=== PATIENT | male | born 1985 | race African-American/Black ===

== ENCOUNTER 2024-05-26 20:55 | Emergency (ER) | payer SELFPAY ==
--- NOTE | 2024-05-26 22:38 | EDPHYS ---
Physician Documentation [facility] Name: Elvin Shepard Age: 38 yrs Sex: Male : 1985 Arrival Date: 05/26/2024 Time: 20:55 Bed 7 Private MD: ED Physician Jonathan Delgado HPI: 05/26 23:09 This 38 yrs old Black Male presents to ER via Ambulatory with complaints of Low Back rt Pain. 23:09 Patient presents to the ED with atraumatic low back pain. 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 Patient reports that the pain goes across his back, has been progressively worsening for the past 2 weeks. Denies other radiation, neurologic symptoms. Symptoms are aching in nature, not otherwise radiating, no other aggravating or alleviating factors.. Historical: - Allergies: 21:17 No Known Allergies; me1 - Home Meds: 21:17 BuSpar Oral [Active]; Xanax Oral [Active]; me1 - PMHx: 21:17 Panic attack; Anxiety; me1 - PSHx: 21:17 None; me1 - Immunization history:: Adult Immunizations up to date. - Infectious Disease History:: Denies. - Social history:: Smoking status: Patient reports the use of cigarette tobacco products, denies chronic smoking, but will smoke occasionally. - Family history:: not pertinent. ROS: 23:09 Constitutional: Negative for fever, chills, and weight loss, Cardiovascular: Negative rt for chest pain, palpitations, and edema, Respiratory: Negative for shortness of breath, cough, wheezing, and pleuritic chest pain, MS/Extremity: Negative for injury and deformity, Skin: Negative for injury, rash, and discoloration, Neuro: Negative for headache, weakness, numbness, tingling, and seizure, 23:09 Back: Positive for pain at rest, Negative for injury or acute deformity, Exam: 23:09 Constitutional: This is a well developed, well nourished patient who is awake, alert, rt and in no acute distress. Head/Face: Normocephalic, atraumatic. Chest/axilla: Normal chest wall appearance and motion. Nontender with no deformity. No lesions are appreciated. Cardiovascular: Regular rate and rhythm with a normal S1 and S2. No gallops, murmurs, or rubs. Normal PMI, no JVD. No pulse deficits. Respiratory: Lungs have equal breath sounds bilaterally, clear to auscultation and percussion. No rales, rhonchi or wheezes noted. No increased work of breathing, no retractions or nasal flaring. Skin: Warm, dry with normal turgor. Normal color with no rashes, no lesions, and no evidence of cellulitis. MS/ Extremity: Pulses equal, no cyanosis. Neurovascular intact. Full, normal range of motion. Neuro: Awake and alert, GCS 15, oriented to person, place, time, and situation. Cranial nerves II-XII grossly intact. Motor strength 5/5 in all extremities. Sensory grossly intact. Cerebellar exam normal. Normal gait. 23:09 Back: Mild tenderness at the bilateral lower lumbar paraspinal region, no step-offs, no CVAT, Vital Signs: 21:14 BP 122 / 94; Pulse 88; Resp 16; Temp 98; Pulse Ox 97% ; Weight 119.75 kg; Height 5 ft. me1 6 in. ; Pain 8/10; 21:14 Body Mass Index 42.61 (119.75 kg, 167.64 cm) me1 21:14 Pain Scale: Adult me1 MDM: 22:29 Medical Screening Exam initiated rt 23:09 Differential diagnosis: Low back pain, disc herniation, sciatica. Data reviewed: vital rt signs, nurses notes. Test considered but Not performed: Other Details No trauma, neurologic deficits, CT scan not indicated. Counseling: I had a detailed discussion with the patient and/or guardian regarding the historical points, exam findings, and any diagnostic results supporting the discharge/admit diagnosis, the need for outpatient follow up, to return to the emergency department if symptoms worsen or persist or if there are any questions or concerns that arise at home. Response to treatment: the patient's symptoms have mildly improved after treatment. Administered Medications: 22:49 Drug: Ketorolac IM 30 mg IM once Route: IM; Site: right deltoid; al5 22:49 Follow up: Response: No adverse reaction; Medication administered at discharge. al5 22:49 Drug: Cyclobenzaprine PO 10 mg PO once Route: PO; al5 22:49 Follow up: Response: No adverse reaction; Medication administered at discharge. al5 Disposition Summary: 05/26/24 22:37 Discharge Ordered Notes: Location: Home rt Problem: an ongoing problem rt Symptoms: are unchanged rt Condition: Stable rt Diagnosis - Low back pain rt Followup: rt - With: Private Physician - When: 2 - 3 days - Reason: Discharge Instructions: - Discharge Summary Sheet rt - Acute Back Pain, Adult rt Forms: - Work release form rt - Medication Reconciliation Form rt - Antibiotic Education rt - Prescription Opioid Use rt - Patient Portal Instructions rt - Leadership Thank You Letter rt Prescriptions: - Cyclobenzaprine 10 mg Oral Tablet - take 1 tablet ORAL route every 8 hours As needed; 30 tablet; Refills: 0, rt Product Selection Permitted - Medrol (Terrell) 4 mg Oral Tablets, Dose Pack - take 1 tablet ORAL route as directed - follow package instructions; 1 packet; rt Refills: 0, Product Selection Permitted Signatures: Jonathan Delgado MD MD rt Kaylyn Vásquez, RN RN me1 Vita Austin RN RN al5
--- NOTE | 2024-05-26 22:38 | ER ---
Nurse's Notes [facility] Name: Elvin Shepard Age: 38 yrs Sex: Male : 1985 Arrival Date: 05/26/2024 Time: 20:55 Bed 7 Private MD: Diagnosis: Low back pain Presentation: 05/26 21:14 Chief complaint: Patient states: lower back pain that started 2 weeks ago but has me1 gotten worse. Patient climb a lot ladders and do heavy lifting at work but does not know of a specific time that he injured it. Coronavirus screen: Vaccine status: Patient reports being unvaccinated. Ebola Screen: No symptoms or risks identified at this time. Initial Sepsis Screen: Does the patient meet any 2 criteria? No. Patient's initial sepsis screen is negative. Does the patient have a suspected source of infection? No. Patient's initial sepsis screen is negative. Risk Assessment: Do you want to hurt yourself or someone else? Patient reports no desire to harm self or others. Onset of symptoms is unknown. 21:14 Method Of Arrival: [place] [facility] [place] 21:14 Acuity: SULMA 4 me1 Historical: - Allergies: 21:17 No Known Allergies; me1 - Home Meds: 21:17 BuSpar Oral [Active]; Xanax Oral [Active]; me1 - PMHx: 21:17 Panic attack; Anxiety; me1 - PSHx: 21:17 None; me1 - Immunization history:: Adult Immunizations up to date. - Infectious Disease History:: Denies. - Social history:: Smoking status: Patient reports the use of cigarette tobacco products, denies chronic smoking, but will smoke occasionally. - Family history:: not pertinent. Screenin:30 [facility] ED Fall Risk Assessment (Adult) History of falling in the last 3 months, al5 including since admission No falls in past 3 months (0 pts) Confusion or Disorientation No (0 pts) Intoxicated or Sedated No (0 pts) Impaired Gait No (0 pts) Mobility Assist Device Used No (0 pt) Altered Elimination No (0 pt) Score/Fall Risk Level 0 - 2 = Low Risk Oriented to surroundings, Maintained a safe environment, Hourly rounding (assess needs \T\ fall precautionary measures) done. Abuse screen: Denies threats or abuse. Denies injuries from another. Nutritional screening: No deficits noted. Tuberculosis screening: No symptoms or risk factors identified. Assessment: 22:50 General: Appears in no apparent distress. uncomfortable, Behavior is calm, cooperative. al5 Pain: Complains of pain in back Pain currently is 8 out of 10 on a pain scale. Neuro: Level of Consciousness is awake, alert, obeys commands, Oriented to person, place, time, situation. Cardiovascular: Capillary refill < 3 seconds Patient's skin is warm and dry. Respiratory: Airway is patent Respiratory effort is even, unlabored, Respiratory pattern is regular, symmetrical. GI: No signs and/or symptoms were reported involving the gastrointestinal system. : No signs and/or symptoms were reported regarding the genitourinary system. EENT: No signs and/or symptoms were reported regarding the EENT system. Derm: Skin is intact, is healthy with good turgor, Skin is pink, warm \T\ dry. normal. Musculoskeletal: Reports pain in back. Vital Signs: 21:14 BP 122 / 94; Pulse 88; Resp 16; Temp 98; Pulse Ox 97% ; Weight 119.75 kg; Height 5 ft. me1 6 in. ; Pain 8/10; 21:14 Body Mass Index 42.61 (119.75 kg, 167.64 cm) me1 21:14 Pain Scale: Adult me1 ED Course: 21:06 Patient arrived in ED. gm2 21:07 Jonathan Delgado MD is Attending Physician. rt 21:17 Triage completed. me1 21:17 Arm band placed on Patient placed in an exam room. me1 22:28 Kaylyn Vásquez, NATIVIDAD is Primary Nurse. me1 22:31 No provider procedures requiring assistance completed. al5 22:50 Patient has correct armband on for positive identification. Bed in low position. Call al5 light in reach. Side rails up X 1. Provided Education on: discharge follow up. 22:51 Patient did not have IV access during this emergency room visit. al5 Administered Medications: 22:49 Drug: Ketorolac IM 30 mg IM once Route: IM; Site: right deltoid; al5 22:49 Follow up: Response: No adverse reaction; Medication administered at discharge. al5 22:49 Drug: Cyclobenzaprine PO 10 mg PO once Route: PO; al5 22:49 Follow up: Response: No adverse reaction; Medication administered at discharge. al5 Medication: 22:31 VIS not applicable for this client. al5 Outcome: 22:37 Discharge ordered by . rt 22:51 Discharged to home ambulatory, al5 22:51 Discharged to home ambulatory, with significant other, :51 Condition: good 22:51 Discharge instructions given to patient, significant other, Instructed on discharge instructions, follow up and referral plans. medication usage, Demonstrated understanding of instructions, follow-up care, medications, Prescriptions given X 2, 22:51 Patient left the ED. al5 Signatures: Jonathan Delgado MD MD rt Kaylyn Vásquez, NATIVIDAD RN me1 Dalila Kingston gm2 Vita Austin RN RN al5
[2024-05-26] MEDS ORDERED: KETOROLAC 30 MG/ML INJ ONE (22:43)
[2024-05-26] MEDS ORDERED: CYCLOBENZAPRINE 10 MG TAB ONE (22:44)
[2024-05-26 23:34] VITALS: BP 122/94; TEMP 98; O2SAT 97
== END 2024-05-26 22:51 | disposition home or self-care (01) ==
LOC: ER 20:55
DX: M54.50 Low back pain, unspecified (principal); F17.210 Nicotine dependence, cigarettes, uncomplicated
CPT/HCPCS: 96372; 99284

== ENCOUNTER 2024-05-31 18:45 | Emergency (ER) | payer BC, SELFPAY ==
[2024-05-31] MEDS ORDERED: KETOROLAC 30 MG/ML INJ ONE (19:23)
[2024-05-31] MEDS ORDERED: LIDOCAINE 4% PATCH ONE (19:24)
[2024-05-31] MEDS ORDERED: HYDROCODONE/APAP 10/325 TAB ONE (19:24)
--- NOTE | 2024-05-31 19:24 | EDPHYS ---
Physician Documentation [facility] Name: Elvin Shepard Age: 38 yrs Sex: Male : 1985 Arrival Date: 05/31/2024 Time: 18:45 Bed IW2 Private MD: ED Physician Juan Calzada HPI: 05/31 19:13 This 38 yrs old Black Male presents to ER via Ambulatory with complaints of Back Pain - kb Work related. 19:13 Pt is a 38 year old male who presents for low back pain that started 2 weeks ago. 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 Denies any injury or trauma. Cannot pinpoint when the pain started. Denies numbness, tingling. Historical: - Allergies: 19:09 No Known Allergies; ld1 - PMHx: 19:09 Anxiety; panic attack; ld1 - Immunization history:: Adult Immunizations up to date. - Infectious Disease History:: Denies. - Social history:: Smoking status: Patient denies any tobacco usage or history of. ROS: 19:13 Constitutional: As per HPI kb Exam: 19:13 Constitutional: This is a well developed, well nourished patient who is awake, alert, kb and in no acute distress. Head/Face: Normocephalic, atraumatic. ENT: Moist Mucous membranes Cardiovascular: Regular rate Respiratory: Respirations even and unlabored. No increased work of breathing. Talking in full sentences Abdomen/GI: Soft, non-tender. No distention Skin: Warm, dry with normal turgor. Normal color. MS/ Extremity: Pulses equal, no cyanosis. Neurovascular intact. Full, normal range of motion. Neuro: Awake and alert, GCS 15, oriented to person, place, time, and situation. 19:13 Back: pain, that is moderate, ROM is painful, normal spinal alignment noted, Vital Signs: 19:08 BP 157 / 97; Pulse 99; Resp 18; Temp 98.5(TE); Pulse Ox 96% on R/A; Weight 111.13 kg; ld1 Height 5 ft. 6 in. ; Pain 10/10; 19:08 Body Mass Index 39.54 (111.13 kg, 167.64 cm) ld1 19:08 Pain Scale: Adult ld1 MDM: 18:51 Medical Screening Exam initiated kb 19:16 Data reviewed: vital signs, nurses notes. kb 19:16 Differential diagnosis: fracture, sciatica, contusion, Herniated disc. Test considered kb but Not performed: MRI: MRI considered but no indication for emergency MRI. Historians other than the Patient: Spouse/Significant Other: significant other. Counseling: I had a detailed discussion with the patient and/or guardian regarding the historical points, exam findings, and any diagnostic results supporting the discharge/admit diagnosis, the need for outpatient follow up, a family practitioner, to return to the emergency department if symptoms worsen or persist or if there are any questions or concerns that arise at home. Administered Medications: 19:28 Drug: Ketorolac IM 30 mg IM once Route: IM; Site: right gluteus; me1 19:37 Follow up: Response: No adverse reaction; Pain is decreased me1 19:28 Drug: Star PO 10 mg-325 mg 1 tabs PO once Route: PO; me1 19:36 Follow up: Response: No adverse reaction; Pain is decreased me1 19:28 Drug: Lidoderm Topical Patch 5 % (700 mg/patch) 1 patches Topical once; leave on for 12 me1 hours; cover most painful area; may cut into smaller pieces Route: Topical; Site: affected area; 19:36 Follow up: Response: No adverse reaction me1 Disposition Summary: 05/31/24 19:23 Discharge Ordered Notes: Location: Home kb Condition: Stable kb Diagnosis - Low back pain kb Followup: kb - With: Emergency Department - When: As needed - Reason: Worsening of condition Followup: kb - With: Private Physician - When: 2 - 3 days - Reason: Recheck today's complaints, Continuance of care, Re-evaluation by your physician Discharge Instructions: - Discharge Summary Sheet kb - Acute Back Pain, Adult kb - Musculoskeletal Pain kb Forms: - Medication Reconciliation Form kb - Antibiotic Education kb - Prescription Opioid Use kb - Patient Portal Instructions kb - Leadership Thank You Letter kb - Work release form me1 Prescriptions: - Diclofenac Sodium 75 mg Oral tablet, delayed release (enteric coated) - take 1 tablet ORAL route 2 times per day As needed; 30 tablet; Refills: 0, kb Product Selection Permitted Signatures: Tamanna Armendariz FNP-C FNP-Michaela Maya RN RN ld1 Kaylyn Vásquez, RN RN me1
--- NOTE | 2024-05-31 19:24 | ER ---
Nurse's Notes [facility] Name: Elvin Shepard Age: 38 yrs Sex: Male : 1985 Arrival Date: 05/31/2024 Time: 18:45 Bed IW2 Private MD: Diagnosis: Low back pain Presentation: 05/31 19:08 Chief complaint: Patient states: Pt reports coming to ER this week for back pain due to ld1 work related incident> Reporting muscle relaxers not working. Coronavirus screen: At this time, the client does not indicate any symptoms associated with coronavirus-19. Ebola Screen: No symptoms or risks identified at this time. Initial Sepsis Screen: Does the patient meet any 2 criteria? No. Patient's initial sepsis screen is negative. Does the patient have a suspected source of infection? No. Patient's initial sepsis screen is negative. Risk Assessment: Do you want to hurt yourself or someone else? Patient reports no desire to harm self or others. Onset of symptoms was May 31, 2024. 19:08 Method Of Arrival: Ambulatory ld1 19:08 Acuity: SULMA 4 ld1 Triage Assessment: 19:09 General: Appears in no apparent distress. uncomfortable, Behavior is cooperative, ld1 anxious. Pain: Complains of pain in back Pain does not radiate. Pain currently is 9 out of 10 on a pain scale. Quality of pain is described as throbbing. EENT: No signs and/or symptoms were reported regarding the EENT system. Neuro: Level of Consciousness is awake, alert, obeys commands, Oriented to person, place, time, situation. Cardiovascular: Capillary refill < 3 seconds Patient's skin is warm and dry. Respiratory: Airway is patent Respiratory effort is even, unlabored. GI: Abdomen is round non-distended. : No signs and/or symptoms were reported regarding the genitourinary system. Derm: No signs and/or symptoms reported regarding the dermatologic system. Musculoskeletal: Range of motion: intact in all extremities. Historical: - Allergies: 19:09 No Known Allergies; ld1 - PMHx: 19:09 Anxiety; panic attack; ld1 - Immunization history:: Adult Immunizations up to date. - Infectious Disease History:: Denies. - Social history:: Smoking status: Patient denies any tobacco usage or history of. Screenin:34 [facility] ED Fall Risk Assessment (Adult) History of falling in the last 3 months, me1 including since admission No falls in past 3 months (0 pts) Confusion or Disorientation No (0 pts) Intoxicated or Sedated No (0 pts) Impaired Gait No (0 pts) Mobility Assist Device Used No (0 pt) Altered Elimination No (0 pt) Score/Fall Risk Level 0 - 2 = Low Risk Maintained a safe environment, Provided non-skid footwear, Hourly rounding (assess needs \T\ fall precautionary measures) done. Abuse screen: Denies threats or abuse. Nutritional screening: No deficits noted. Tuberculosis screening: No symptoms or risk factors identified. Assessment: 19:34 General: Appears uncomfortable, well groomed, well developed, well nourished, Behavior me1 is calm, cooperative, appropriate for age, Reports Pt reports coming to ER this week for back pain due to work related incident> Reporting muscle relaxers not working. Pain: Complains of pain in back Pain does not radiate. Pain currently is 10 out of 10 on a pain scale. Quality of pain is described as aching, sharp, Pain began gradually, Is continuous. Neuro: Level of Consciousness is awake, alert, obeys commands, Oriented to person, place, time, situation, Appropriate for age. Cardiovascular: Patient's skin is warm and dry. Respiratory: Airway is patent Respiratory effort is even, unlabored, Respiratory pattern is regular, symmetrical. GI: No signs and/or symptoms were reported involving the gastrointestinal system. : No signs and/or symptoms were reported regarding the genitourinary system. EENT: No signs and/or symptoms were reported regarding the EENT system. Derm: Skin is intact, is healthy with good turgor, Skin is pink, warm \T\ dry. Musculoskeletal: Reports pain in back. Vital Signs: 19:08 BP 157 / 97; Pulse 99; Resp 18; Temp 98.5(TE); Pulse Ox 96% on R/A; Weight 111.13 kg; ld1 Height 5 ft. 6 in. ; Pain 10/10; 19:08 Body Mass Index 39.54 (111.13 kg, 167.64 cm) ld1 19:08 Pain Scale: Adult ld1 ED Course: 18:50 Patient arrived in ED. ra3 18:51 Tamanna Armendariz FNP-C is [facility]. kb 18:51 Juan Calzada MD is Attending Physician. kb 19:09 Triage completed. ld1 19:09 Arm band placed on right wrist. ld1 19:20 Kaylyn Vásquez, RN is Primary Nurse. me1 19:34 Patient has correct armband on for positive identification. Bed in low position. Call me1 light in reach. Side rails up X2. Provided Education on: POC. Verbalized understanding.. 19:34 No provider procedures requiring assistance completed. Patient did not have IV access me1 during this emergency room visit. Administered Medications: 19:28 Drug: Ketorolac IM 30 mg IM once Route: IM; Site: right gluteus; me1 19:37 Follow up: Response: No adverse reaction; Pain is decreased me1 19:28 Drug: [place] PO 10 mg-325 mg 1 tabs PO once Route: PO; me1 19:36 Follow up: Response: No adverse reaction; Pain is decreased me1 19:28 Drug: Lidoderm Topical Patch 5 % (700 mg/patch) 1 patches Topical once; leave on for 12 me1 hours; cover most painful area; may cut into smaller pieces Route: Topical; Site: affected area; 19:36 Follow up: Response: No adverse reaction me1 Medication: 19:34 VIS not applicable for this client. me1 Outcome: 19:23 Discharge ordered by MD. kb 19:34 Discharged to home ambulatory, with significant other, me1 19:34 Condition: stable 19:34 Discharge instructions given to patient, significant other, Instructed on discharge instructions, follow up and referral plans. medication usage, Demonstrated understanding of instructions, follow-up care, medications, Prescriptions given X 1, 19:37 Patient left the ED. me1 Signatures: Tamanna Armendariz FNP-C FNP-Ckb Michaela Banks RN RN ld1 Kaylyn Vásquez, RN RN me1 Cleo Devi ra3 Corrections: (The following items were deleted from the chart) 19:34 19:08 Chief complaint: Patient states: Pt reports coming to ER this week for back pain me1 due to work related incident> Reporting muscle relaxers not working. ld1
[2024-05-31 23:15] VITALS: BP 157/97; TEMP 98.5; O2SAT 96
== END 2024-05-31 19:37 | disposition home or self-care (01) ==
LOC: ER 18:45
DX: M54.50 Low back pain, unspecified (principal)
CPT/HCPCS: 96372; 99284; J2003

== ENCOUNTER 2024-06-16 03:10 | Emergency (ER) | payer BC ==
--- NOTE | 2024-06-16 03:41 | ER ---
Nurse's Notes [facility] Name: Elvin Shepard Age: 38 yrs Sex: Male : 1985 Arrival Date: 06/16/2024 Time: 03:10 Bed 16 Private MD: Diagnosis: Low back pain Presentation: 06/16 03:29 Chief complaint: Patient states: LEFT FLANK PAIN THAT RADIATES TO LLE. PT STATES THIS br2 IS A CHRONIC CONDITION BUT HAD PHYSICAL THERAPY YESTERDAY AND PAIN HAS BEEN WORSE SINCE THEN. Coronavirus screen: Client denies travel out of the [place] in the last 14 days. Ebola Screen: Patient denies exposure to infectious person. Initial Sepsis Screen: Does the patient meet any 2 criteria? No. Patient's initial sepsis screen is negative. Does the patient have a suspected source of infection? No. Patient's initial sepsis screen is negative. Risk Assessment: Do you want to hurt yourself or someone else? Patient reports no desire to harm self or others. Onset of symptoms was June 15, 2024. 03:29 Method Of Arrival: Wheelchair br2 03:29 Acuity: SULMA 4 br2 Historical: - Allergies: 03:32 No Known Allergies; br2 - PMHx: 03:32 Anxiety; panic attack; br2 - Immunization history:: Adult Immunizations up to date. - Infectious Disease History:: Denies. - Social history:: Smoking status: Reported history of juuling and/or vaping. Patient uses alcohol, occasionally. Patient/guardian denies using street drugs. - Family history:: not pertinent. Screenin:24 [facility] ED Fall Risk Assessment (Adult) History of falling in the last 3 months, cp4 including since admission No falls in past 3 months (0 pts) Confusion or Disorientation No (0 pts) Intoxicated or Sedated No (0 pts) Impaired Gait No (0 pts) Mobility Assist Device Used No (0 pt) Altered Elimination No (0 pt) Score/Fall Risk Level 0 - 2 = Low Risk Oriented to surroundings, Maintained a safe environment, Assessed \T\ reinforced patient's understanding of fall precautions, Hourly rounding (assess needs \T\ fall precautionary measures) done. Abuse screen: Denies threats or abuse. Denies injuries from another. Nutritional screening: No deficits noted. Tuberculosis screening: No symptoms or risk factors identified. Assessment: 04:24 General: Appears in no apparent distress. uncomfortable, Behavior is calm, cooperative, cp4 appropriate for age. Pain: Complains of pain in back Pain radiates to left leg Pain currently is 10 out of 10 on a pain scale. Neuro: Level of Consciousness is awake, alert, obeys commands, Oriented to person, place, time, situation. Cardiovascular: Patient's skin is warm and dry. Respiratory: Airway is patent Respiratory effort is even, unlabored. GI: No signs and/or symptoms were reported involving the gastrointestinal system. : No signs and/or symptoms were reported regarding the genitourinary system. EENT: No signs and/or symptoms were reported regarding the EENT system. Derm: No signs and/or symptoms reported regarding the dermatologic system. Musculoskeletal: Reports pain in back. Vital Signs: 03:29 BP 165 / 96; Pulse 63; Resp 18; Temp 97.5(O); Pulse Ox 98% on R/A; Weight 117.93 kg; br2 Height 5 ft. 6 in. ; Pain 10/10; 04:27 BP 147 / 96; Pulse 65; Resp 18; Pulse Ox 98% ; cp4 03:29 Body Mass Index 41.96 (117.93 kg, 167.64 cm) br2 03:29 Pain Scale: Adult br2 ED Course: 03:14 Patient arrived in ED. gm2 03:19 Jonathan Delgado MD is Attending Physician. rt 03:32 Triage completed. br2 04:24 Bed in low position. Call light in reach. Side rails up X2. Provided Education on: back cp4 pain. 04:24 No provider procedures requiring assistance completed. Patient did not have IV access cp4 during this emergency room visit. 04:27 Arm band placed on right wrist. Patient placed in waiting room. cp4 Administered Medications: 03:49 Drug: Ketorolac IM 30 mg IM once Route: IM; Site: left deltoid; cp4 04:28 Follow up: Response: No adverse reaction; Pain is decreased cp4 03:49 Drug: Hydrocodone-Acetaminophen PO (7.5 mg-325 mg) 1 tabs PO once Route: PO; cp4 04:28 Follow up: Response: No adverse reaction; Pain is decreased cp4 03:49 Drug: Gabapentin PO 300 mg PO once Route: PO; cp4 04:28 Follow up: Response: No adverse reaction; Pain is decreased cp4 Medication: 04:24 VIS not applicable for this client. cp4 Outcome: 03:41 Discharge ordered by . rt 04:24 Discharged to home ambulatory, cp4 04:24 Condition: stable 04:24 Discharge instructions given to patient, family, Instructed on discharge instructions, follow up and referral plans. Demonstrated understanding of instructions, follow-up care, 04:28 Patient left the ED. cp4 Signatures: Jonathan Delgado MD MD rt Jojo Dumas cp4 Dalila Kingston gm2 Marj Dumont, RN RN br2
--- NOTE | 2024-06-16 03:41 | EDPHYS ---
Physician Documentation [facility] Name: Elvin Shepard Age: 38 yrs Sex: Male : 1985 Arrival Date: 06/16/2024 Time: 03:10 Bed 16 Private MD: ED Physician Jonathan Delgado HPI: 06/16 03:52 This 38 yrs old Black Male presents to ER via Wheelchair with complaints of Low Back rt Pain, Painful to walk. 03:52 Patient presents to the ED with a low back pain that has been present for about 1 rt month. Patient is under the care of a pain management doctor. States that started physical therapy recently making the pain worse. He does have an MRI scheduled for Wednesday. Denies other acute complaints at this time, symptoms are moderate severity, no other aggravating factors.. Historical: - Allergies: 03:32 No Known Allergies; br2 - PMHx: 03:32 Anxiety; panic attack; br2 - Immunization history:: Adult Immunizations up to date. - Infectious Disease History:: Denies. - Social history:: Smoking status: Reported history of juuling and/or vaping. Patient uses alcohol, occasionally. Patient/guardian denies using street drugs. - Family history:: not pertinent. ROS: 03:52 Constitutional: Negative for fever, chills, and weight loss, Cardiovascular: Negative rt for chest pain, palpitations, and edema, Respiratory: Negative for shortness of breath, cough, wheezing, and pleuritic chest pain, Abdomen/GI: Negative for abdominal pain, nausea, vomiting, diarrhea, and constipation, Skin: Negative for injury, rash, and discoloration, Neuro: Negative for headache, weakness, numbness, tingling, and seizure, 03:52 Back: Positive for pain at rest, pain with movement, Exam: 03:52 Constitutional: This is a well developed, well nourished patient who is awake, alert, rt and in no acute distress. Head/Face: Normocephalic, atraumatic. Chest/axilla: Normal chest wall appearance and motion. Nontender with no deformity. No lesions are appreciated. Cardiovascular: Regular rate and rhythm with a normal S1 and S2. No gallops, murmurs, or rubs. Normal PMI, no JVD. No pulse deficits. Respiratory: Lungs have equal breath sounds bilaterally, clear to auscultation and percussion. No rales, rhonchi or wheezes noted. No increased work of breathing, no retractions or nasal flaring. Abdomen/GI: Soft, non-tender, with normal bowel sounds. No distension or tympany. No guarding or rebound. No evidence of tenderness throughout. Skin: Warm, dry with normal turgor. Normal color with no rashes, no lesions, and no evidence of cellulitis. MS/ Extremity: Pulses equal, no cyanosis. Neurovascular intact. Full, normal range of motion. Vital Signs: 03:29 BP 165 / 96; Pulse 63; Resp 18; Temp 97.5(O); Pulse Ox 98% on R/A; Weight 117.93 kg; br2 Height 5 ft. 6 in. ; Pain 10/10; 04:27 BP 147 / 96; Pulse 65; Resp 18; Pulse Ox 98% ; cp4 03:29 Body Mass Index 41.96 (117.93 kg, 167.64 cm) br2 03:29 Pain Scale: Adult br2 MDM: 03:32 Medical Screening Exam initiated rt 03:52 Differential diagnosis: Strain, herniated disc. Data reviewed: vital signs, nurses rt notes. Counseling: I had a detailed discussion with the patient and/or guardian regarding the historical points, exam findings, and any diagnostic results supporting the discharge/admit diagnosis, the need for outpatient follow up. Administered Medications: 03:49 Drug: Ketorolac IM 30 mg IM once Route: IM; Site: left deltoid; cp4 04:28 Follow up: Response: No adverse reaction; Pain is decreased cp4 03:49 Drug: Hydrocodone-Acetaminophen PO (7.5 mg-325 mg) 1 tabs PO once Route: PO; cp4 04:28 Follow up: Response: No adverse reaction; Pain is decreased cp4 03:49 Drug: Gabapentin PO 300 mg PO once Route: PO; cp4 04:28 Follow up: Response: No adverse reaction; Pain is decreased cp4 Disposition Summary: 06/16/24 03:41 Discharge Ordered Notes: Location: Home rt Problem: an ongoing problem rt Symptoms: have improved rt Condition: Stable rt Diagnosis - Low back pain rt Followup: rt - With: Private Physician - When: 2 - 3 days - Reason: Discharge Instructions: - Discharge Summary Sheet rt - Acute Back Pain, Adult rt Forms: - Medication Reconciliation Form rt - Antibiotic Education rt - Prescription Opioid Use rt - Patient Portal Instructions rt - Leadership Thank You Letter rt Signatures: Jonathan Delgado MD MD rt Jojo Dumas cp4 Marj Dumont RN RN br2
[2024-06-16] MEDS ORDERED: KETOROLAC 30 MG/ML INJ ONE (03:44)
[2024-06-16] MEDS ORDERED: GABAPENTIN 300 MG CAP ONE (03:44)
[2024-06-16] MEDS ORDERED: HYDROCODONE/APAP 7.5/325 MG TAB ONE (03:45)
[2024-06-16 04:37] VITALS: TEMP 97.5; O2SAT 98
[2024-06-16 04:38] VITALS: BP 147/96
== END 2024-06-16 04:28 | disposition home or self-care (01) ==
LOC: ER 03:10
DX: M54.50 Low back pain, unspecified (principal)
CPT/HCPCS: 96372; 99284